=== PATIENT | female | born 1955 | race Caucasian/White ===

== ENCOUNTER 2017-03-30 23:48 | Emergency (ER) | payer BC ==
--- NOTE | 2017-03-30 23:55 | ERNOTE ---
Chest Pain/Cardiac HPI Date of Service: 03/30/17 Time Seen by Provider: 03/30/17 23:54 Source: patient, EMS Allergies/Adverse Reactions: Allergies No Known Allergies Allergy (Unverified 03/30/17 23:59) Home Medications: HOME MEDICATIONS Cholecalciferol (Vitamin D3) [Vitamin D3] 1,000 unit PO DAILY 03/31/17 [Last Taken Unknown] Glucosamine/D3/Boswellia Shellie [Osteo Bi-Flex Caplet] 2 tab PO DAILY 03/31/17 [ Last Taken Unknown] Magnesium Oxide [Magnesium] 250 mg PO DAILY 03/31/17 [Last Taken Unknown] Multivit,Stress Formula/Zinc [Stress-C with Zinc Tablet] 1 each PO DAILY [Last Taken Unknown] Chloe-3 Fatty Acids [Fish Oil] 2 cap PO DAILY 03/31/17 [Last Taken Unknown] Oxybutynin Chloride [Ditropan Xl] 5 mg PO BID 03/31/17 [Last Taken Unknown] Propranolol HCl [Inderal Xl] 80 mg PO DAILY 03/31/17 [Last Taken Unknown] Simvastatin 10 mg PO HS 03/31/17 [Last Taken Unknown] Vit C/Vit E/Lutein/Min/Chloe-3 [Ocuvite Softgel] 2 each PO DAILY 03/31/17 [Last Taken Unknown] Narrative: C/O CHEST PAIN, LOWER SUBSTERNAL, WITH DIAPHORESIS WITH RADIATION IN TO HER LEFT JAW. SHE SAYS SHE WAS AWAKE WHEN IT HAPPENED AND WAS JUST GETTING READY TO GO TO BED. SHE TOOK 4 BABY ASPIRIN AND THE PAIN SUBSIDED WITHIN 10 MINS. SHE HAS NOT PAIN ON ARRIVAL. EMS REPORTS SHE HAD ELVATED BP AT THE SCENE BUT THEY DID NOT GIVE ANY NTG. SHE DENIES HX OF HEART DIS BUT SAYS SHE HAD SMALL EPISODE OF CHEST PAIN LAST WEEK BUT DID NOT SEEK MEDICAL CARE FOR THAT. SHE SAYS HER DAD HAD AN PR AND THAT HER MOTHER HAD "HEART FAILURE". SHE DOES LIVE ALONE. Timing: resolved prior to arrival, gone now Location: substernal Chest Pain Radiation: jaw Activities at Onset: none Review of Systems - Review of Systems Constitutional: Present: See HPI EYE: Present: no symptoms reported ENT: Present: no symptoms reported Respiratory: Present: no symptoms reported Cardiology: Present: See HPI, chest pain Gastrointestinal/Abdominal: Present: no symptoms reported Genitourinary: Present: no symptoms reported Musculoskeletal: Present: no symptoms reported Skin: Present: no symptoms reported Neurological: Present: no symptoms reported Endocrine: Present: no symptoms reported Hematologic/Lymphatic: Present: no symptoms reported Psych: Present: no symptoms reported All Other Systems: All systems neg except as marked - Patient's Past Medical History Patient History - Medical: Obesity Patient History - Cardiac/Respiratory: Hypertension, Hyperlipidemia Patient History - Surgical Procedures: Other - STATES SOME LUNG SURGERY YEARS AGO. , Orthopedic - CTS L. Patient History - Other: None - Family History Father Family History - Cardiac/Respiratory: Myocardial Infarction Mother Family History - Cardiac/Respiratory: Coronary Heart Disease - Social History Living Situations: alone Abuse History: No History of abuse Psych History: No pertinent hx Does anyone smoke in the home?: No Alcohol Use: none Drug Use: none Physical Exam - Physical Exam General Appearance: Present: wd/wn, alert, no apparent distress - PT IS OBESE 62 YO LADY WHO APPEARS OLDER THAN STATED AGE BUT HAS NO PAIN , NO DISTRESS WITH VSS. Respiratory: Present: no respiratory distress, normal breath sounds, no accessory muscle use, chest nontender, lungs clear. Absent: chest tenderness Cardiovascular/Chest: Present: regular rate, rhythm, no murmur, normal peripheral pulses Peripheral Pulses: N=norm/S=strong/W=weak/B=bound/A=absent: Dorsalis-pedis (R): Normal, Dorsalis-pedis (L): Normal Gastrointestinal/Abdominal: Present: normal bowel sounds, nontender, nondistended, soft, guarding Back Exam: Present: normal inspection Extremity Exam: Present: normal inspection Neurological Exam: Present: alert, oriented Skin Exam: Present: normal color, warm/dry. Absent: diaphoresis ED Progress - Results and Orders Patient's Lab Results:: I have reviewed the patient's lab results. Results and Orders: labs are neg with initial trop at 0005 = <0.017. mireya repeat at 0400. REPEAT TROP = NEG WELL. NO CHEST PAIN SINCE SHE HAS BEEN HERE. - Vital Signs Patient's Vital Signs:: I have reviewed the patient's vital signs. - EKG EKG: NSR EKG read: Interp. by me - X-Ray X-Ray #1 X-Ray: chest Interpretation: Interp. by me - wnl. - Progress/Reassessment Progress:: Unchanged - NO PAIN SINCE SHE HAS BEEN HERE. Departure - Departure Clinical Impression: Chest pain Qualifiers: Chest pain type: unspecified Qualified Code(s): R07.9 - Chest pain, unspecified Condition: Good Instructions: Chest Pain Observation Additional Instructions: CONTACT YOUR DRToan LATER TODAY TO LET HIM KNOW YOU WERE SEEN HERE AND HAD A NEGATIVE ER CHEST PAIN EVALUATION AND DISCUSS IF HE WANTS FURTHER EVALUATION LIKE A STRESS TEST. IT WOULD NOT HURT TO TAKE A DAILY BABY ASA AND START PEPCID OR ZANTAC OTC EVERY DAY UNTIL FURTHER EVALUATION IS COMPLETED. RETURN TO THE ER IF YOU ARE WORSE. Referrals: Jeet Burntet MD [Primary Care Provider] -
[2017-03-30] MEDS ORDERED: ASPIRIN 81 MG TAB.CHEW PO STA (23:56)
[2017-03-30] MEDS ORDERED: NITROGLYCERIN 0.4 MG/TAB BTL SL PRN (23:56)
[2017-03-31 00:13] LABS: Hematocrit 39.1 % (37.0-47.0); Hemoglobin 13.2 gm/dL (12.5-16.0); Mean Corpuscular Hemoglobin 31.1 pg (27-31); Mean Corpuscular Hgb Conc 33.8 g/dl (32-36); Neutrophil # 3.8 K/mm3 (1.3-6.0); Platelet Count 230 K/mm3 (150-450); Red Blood Count 4.25 M/mm3 (4.2-5.4); Red Cell Distribution Width 13.1 % (11.5-14.0); White Blood Count 7.4 K/mm3 (4.0-10.5)
[2017-03-31 00:23] LABS: Prothrombin Time (Patient) 10.3 Seconds (9.4-11.4)
[2017-03-31 00:25] LABS: INR 0.99 INR (0.90-1.10); Partial Thrombolplastin Time 25.4 Seconds (24-32)
[2017-03-31 00:29] LABS: ALT 39 U/L (19-67); AST 31 U/L (0-48); Albumin * 3.3 gm/dl (3.4-5.0); Alkaline Phosphatase * 61 U/L (50-170); BUN/Creatinine Ratio 28.7 (9.0-21.6); Bilirubin, Total 0.6 mg/dL (0.0-1.1); Blood Urea Nitrogen 25 mg/dL (3-23); Ca. Corrected For Albumin 9.2 mg/dL (8.4-10.2); Carbon Dioxide 25.2 mmol/L (24-32.6); Chloride 106 mmol/L (97-106); Glucose * 101 mg/dL (70-110); Potassium 4.2 mmol/L (3.4-4.6); Sodium 141 mmol/L (132-142); Total Protein 6.8 gm/dL (6.2-8.2); Troponin I Less than 0.017 ng/ml (0.00-0.10)
--- OUTSIDE RECORDS SUMMARY | 2017-03-31 02:45 | XMS REPORT | Continuity of Care Document ---
:1955 Author Organization [facility] ([facility]) Address [address] [place] [address] Phone [phone] Care Team Providers Name Role Phone Unavailable Primary Care Provider Unavailable Source Comments This disclosure is being made pursuant to the Care Everywhere program, applicable federal and state laws, and may not contain all informaitonavailable regarding this patient.[facility] ([facility]) Active Allergies and Adverse Reactions Not on File Current Medications Not on file Active Problems Not on file Social History Tobacco Use Types Packs/Day Years Used Date Never Assessed Plan of Care Health Maintenance Due Date Last Done Comments HCV Screening 1955 Hepatitis B Vaccine (1 of 3 - Primary Series) 1955 Tdap Vaccine 02/18/1964 Lipid Disorder Screening 1971 Td Vaccine 1971 Cervical Cancer Screening 1983 Mammogram 1993 Colonoscopy 2003 Zoster Vaccine 2013 Influenza Vaccine: Seasonal (#1) 05/27/2016 Results from Last 3 Months Not on file
[2017-03-31 06:19] VITALS: BP 137/55
== END 2017-03-31 04:56 | disposition home or self-care (01) ==
LOC: ER 23:48
DX: R07.9 Chest pain, unspecified (principal); I10 Essential (primary) hypertension; E78.5 Hyperlipidemia, unspecified

== ENCOUNTER 2019-02-01 05:46 | Observation (INO) ==
[2019-02-01 06:26] LABS: Hematocrit 37.6 % (37.0-47.0); Hemoglobin 12.6 gm/dL (12.5-16.0); Mean Cell Volume 93.1 fl (78-100); Mean Corpuscular Hemoglobin 31.2 pg (27-31); Mean Corpuscular Hgb Conc 33.5 g/dl (32-36); Mean Platelet Volume 11.1 fl (8-12.5); Neutrophil # 7.8 K/mm3 (1.3-6.0); Neutrophil % 73.4 % (42-75.0); Platelet Count 183 K/mm3 (150-450); Red Blood Count 4.04 M/mm3 (4.2-5.4); Red Cell Distribution Width 12.5 % (11.5-14.0); White Blood Count 10.6 K/mm3 (4.0-10.5)
[2019-02-01 06:38] LABS: Glucose * 101 mg/dL (70-110)
[2019-02-01 06:39] LABS: ALT 24 U/L (19-67); AST 19 U/L (0-48); Albumin * 3.5 gm/dl (3.4-5.0); Alkaline Phosphatase * 73 U/L (50-170); Anion Gap 19.6 mmol/L (6.8-13.8); BUN/Creatinine Ratio 38.6 (9.0-21.6); Bilirubin, Total 0.3 mg/dL (0.0-1.1); Blood Urea Nitrogen 64 mg/dL (3-23); Ca. Corrected For Albumin 9.3 mg/dL (8.4-10.2); Calcium * 9.2 mg/dL (7.9-10.9); Carbon Dioxide 17.6 mmol/L (24-32.6); Chloride 106 mmol/L (97-106); Potassium 4.2 mmol/L (3.4-4.6); Sodium 139 mmol/L (132-142)
--- NOTE | 2019-02-01 07:28 | ERNOTE ---
Integumentary HPI - Narrative Date of Service: 02/01/19 - General Presenting Symptoms: other - cellulitis left leg Time Seen by Provider: 02/01/19 06:02 Source: patient, EMS Exam Limitations: no limitations - Immun/Allergies/Home Medications Immunizations: IMMUNIZATION HX Immunizations Up to Date Yes History of Influenza Vaccine No Hx Pneumococcal Vaccination Yes Allergies/Adverse Reactions: Allergies Allergy/AdvReac Type Severity Reaction Status Date / Time No Known Allergies Allergy Verified 02/01/19 06:11 Home Medications: HOME MEDICATIONS Cholecalciferol (Vitamin D3) [Vitamin D3] 1,000 unit PO DAILY 03/31/17 [Last Taken 07/27/18] Glucosamine/D3/Boswellia Shellie [Osteo Bi-Flex Caplet] 2 tab PO DAILY 03/31/17 [Last Taken 07/27/18] Magnesium Oxide [Magnesium] 250 mg PO DAILY 03/31/17 [Last Taken 07/27/18] Multivit,Stress Formula/Zinc [Stress-C with Zinc Tablet] 1 ea PO DAILY 03/31/17 [Last Taken 07/27/18] Graham-3 Fatty Acids [Fish Oil] 2 cap PO DAILY 03/31/17 [Last Taken 07/27/18] Vit C/Vit E/Lutein/Min/[place]raham-3 [Ocuvite Softgel] 2 ea PO DAILY 03/31/17 [Last Taken 07/27/18] oxybutynin chloride 5 mg tablet 5 mg PO BID #180 tab 05/08/18 [Last Taken 07/27/18] aspirin 81 mg chewable tablet 81 mg PO DAILY 06/17/18 [Last Taken 07/22/18] carica papaya tablet 1 tab PO QID PRN tab 06/17/18 [Last Taken Unknown] famotidine 20 mg tablet 20 mg PO HS 06/17/18 [Last Taken 07/27/18] zinc 50 mg tablet 50 mg PO DAILY 06/17/18 [Last Taken 07/27/18] Propranolol HCl [Inderal LA] 80 mg PO DAILY 02/01/19 [Last Taken Unknown] Simvastatin 10 mg PO DAILY 02/01/19 [Last Taken Unknown] - History of Present Illness Narrative: patient has been treated for cellullitis oupatient on antibiiotcs, symptoms have failed to improve Location: Reports: lower extremity Quality: Reports: painful, burning Severity: moderate Modifying Factors - (Improves): Reports: nothing Modifying Factors - (Worsens): Reports: nothing Associated Symptoms: Reports: edema Prior Treatment: Reports: recently seen, treated by physician Review of Systems - Review of Systems Constitutional: Present: See HPI EYE: Present: no symptoms reported ENT: Present: no symptoms reported Respiratory: Present: no symptoms reported Cardiology: Present: no symptoms reported Gastrointestinal/Abdominal: Present: no symptoms reported Genitourinary: Present: no symptoms reported Musculoskeletal: Present: no symptoms reported Skin: Present: See HPI, lesions Neurological: Present: no symptoms reported Endocrine: Present: no symptoms reported Hematologic/Lymphatic: Present: no symptoms reported Psych: Present: no symptoms reported All Other Systems: All systems neg except as marked Medical History (Last Reviewed 02/01/19 @ 06:13 by Yelena Petit RN) Arthritis Dyspnea on exertion GERD (gastroesophageal reflux disease) Onset Date: ~04/23/18 stable on Pepcid AC Gastric ulcer HTN (hypertension) Hyperlipidemia Insomnia Migraine Onset Date: ~04/23/18 stable since starting propranolol. Morbid obesity Onset Date: ~04/23/18 Needle phobia Onset Date: ~04/23/18 Postmenopausal Onset Date: ~04/23/18 Stress incontinence in female Onset Date: ~04/23/18 stable, continue oxybutynin Vitamin D deficiency Onset Date: ~04/21/13 Surgical History: Surgical History (Last Reviewed 02/01/19 @ 06:13 by Yelena Petit RN) H/O colonoscopy Onset Date: 07/28/18 [facility]. 07/28/18 [facility]-internal hemorrhoids. Recheck 10 yrs. Histoplasmosis Onset Date: ~1984 [facility] History of carpal tunnel surgery of left wrist Onset Date: ~1984 [facility] Family History: Family History (Last Reviewed 02/01/19 @ 06:13 by Yelena Petit RN) Sister Diabetes Hypertension Father Heart disease Myocardial infarction COPD (chronic obstructive pulmonary disease) Mother CHF (congestive heart failure) Alzheimers disease Lung cancer Sister Hypertension Diabetes Sister Borderline diabetic Hypertension Social History: Preferred Language Divehi Smoking Status Never smoker Abuse History No History of abuse Psych History No pertinent hx Alcohol Use none Drug Use none (Last Reviewed 12/24/18 @ 13:37 by Lucy Ferris RN) No Social History Section defined Physical Exam - Physical Exam General Appearance: Present: moderate distress, anxious Head Exam: Present: normal inspection, no evidence of injury Eye Exam: Normal inspection: bilateral, PERRL: bilateral, EOMI: bilateral Ears, Nose, Throat: Present: normal ENT inspection, normal pharynx Neck: Present: normal inspection, nontender Respiratory: Present: no respiratory distress, normal breath sounds, no accessory muscle use, chest nontender, lungs clear Cardiovascular/Chest: Present: regular rate, rhythm, no murmur, normal peripheral pulses Gastrointestinal/Abdominal: Present: normal bowel sounds, nontender, nondistended, soft, no organomegaly Back Exam: Present: normal inspection, normal range of motion, no CVA tenderness, no vertebral tenderness Extremity Exam: Present: normal except - - open draning wounds on lower left leg calf swollen and tender to palption Neurological Exam: Present: alert, oriented, normal mood/affect, no motor/sensory deficits DTR: N=norm/NB=norm/brisk/A=abs/DD=dull/dimin/HC=hyperactive: Bicep (R): Normal, Bicep (L): Normal, Tricep (R): Normal, Tricep (L): Normal, Knee (R): Normal, Knee (L): Normal, Ankle (R): Normal, Ankle (L): Normal Skin Exam: Present: normal color, warm/dry Lymphatic Exam: Present: no adenopathy Progress - Date and Time Seen: Date and Time: 02/01/19 07:35 condition unchanged - Results and Orders Patient's Lab Results:: I have reviewed the patient's lab results. - Vital Signs Patient's Vital Signs:: I have reviewed the patient's vital signs. Vital Signs: Vital Signs 02/01/19 06:06 Temperature 36.2 C Pulse Rate 64 Respiratory Rate 14 Blood Pressure 98/74 O2 Sat by Pulse Oximetry 97 - Progress/Reassessment Chief Complaint: Cellulitis - Transfer of Care Physician Sign Out: Tobias Hilliard Receiving Physician: Nataly Rodriguez Plan - Plan Plan: to be dismissed Departure Clinical Impression: Abdominal pain - Departure Disposition: Home self-care Condition: Stable Referrals: Jeet Burnett MD [Primary Care Provider] -
[2019-02-01] MEDS ORDERED: NORMAL SALINE 1,000 ML IV PRN (07:56)
[2019-02-01] MEDS ORDERED: CLINDAMYCIN PHOSPHATE 600 MG in DEXTROSE 5 % IN WATER 100 ML IV SCH ×2 (08:00)
[2019-02-01] MEDS ORDERED: SIMVASTATIN 10 MG TABLET PO SCH ×2 (09:00→21:00)
[2019-02-01] MEDS: PROPRANOLOL HCL 80 MG CAPSULE.SA PO SCH (09:07)
[2019-02-01] MEDS: CHOLECALCIFEROL 1,000 UNIT CAPSULE PO SCH (09:46)
[2019-02-01] MEDS: MAGNESIUM OXIDE 400 MG TABLET PO SCH (09:46)
[2019-02-01] MEDS: ASPIRIN 81 MG TAB.CHEW PO SCH (09:46)
[2019-02-01] MEDS: OXYBUTYNIN CHLORIDE 5 MG TABLET PO SCH ×2 (09:47→21:14)
[2019-02-01] MEDS ORDERED: LEVOFLOXACIN 750 MG TABLET PO ONE (12:18)
--- NOTE | 2019-02-01 12:18 | HP ---
Chief Complaint - Chief Complaint Date of Service: 02/01/19 Time of Service: 12:02 Chief Complaint: Left Leg Pain, swelling, redness History of Present Illness: Deja is a 63 yo female who presented to the ER today with worsening left lower extremity pain, swelling, and redness. She has had worse swelling in her legs bilaterally. She does not take diuretics. She reports ambulating less recently. She has had this infection in the left leg since the end of November. She was seen on 12/24/18 and started on Clindamycin orally for 10 days. She reports the infection did not improve and since being off of antibiotics it has worsened. Medical History (Last Reviewed 02/01/19 @ 09:03 by Theodora Bertrand RN) Arthritis Dyspnea on exertion GERD (gastroesophageal reflux disease) Onset Date: ~04/23/18 stable on Pepcid AC Gastric ulcer HTN (hypertension) Hyperlipidemia Insomnia Migraine Onset Date: ~04/23/18 stable since starting propranolol. Morbid obesity Onset Date: ~04/23/18 Needle phobia Onset Date: ~04/23/18 Postmenopausal Onset Date: ~04/23/18 Stress incontinence in female Onset Date: ~04/23/18 stable, continue oxybutynin Vitamin D deficiency Onset Date: ~04/21/13 Surgical History: Surgical History (Last Reviewed 02/01/19 @ 09:04 by Theodora Bertrand RN) H/O colonoscopy Onset Date: 07/28/182006 [facility]. 07/28/18 [facility]-internal hemorrhoids. Recheck 10 yrs. Histoplasmosis Onset Date: ~1984 [facility] History of carpal tunnel surgery of left wrist Onset Date: ~1984 [place] Family History: Family History (Last Reviewed 02/01/19 @ 09:04 by Theodora Bertrand RN) Sister Diabetes Hypertension Father Heart disease Myocardial infarction COPD (chronic obstructive pulmonary disease) Mother CHF (congestive heart failure) Alzheimers disease Lung cancer Sister Hypertension Diabetes Sister Borderline diabetic Hypertension Social History: Patient Lives/Resources Home Utilized Preferred Language Lao Smoking Status Never smoker Have you smoked in the past 12 No months Abuse History No History of abuse Psych History No pertinent hx Alcohol Use none Drug Use none (Last Reviewed 12/24/18 @ 13:37 by Lucy Ferris RN) No Social History Section defined Review Of Systems (GEN) - Review of Systems Generalized/Overall Review: Absent: Weakness, Chills, Fever EENTM: Present: No Symptoms Reported Respiratory: Present: No Symptoms Reported Cardiac: Present: No Symptoms Reported Abdominal: Present: No Symptoms Reported Genitourinary: Present: No Symptoms Reported Musculoskeletal: Present: No Symptoms Reported Neurological: Present: No Symptoms Reported Skin: Present: Change in Color - worsening redness with drainage of fluid, Other - worsening pain of left leg skin Endocrine: Present: No Symptoms Reported Immunizations: IMMUNIZATION HX Immunizations Up to Date Yes History of Influenza Vaccine No Hx Pneumococcal Vaccination Yes Allergies/Adverse Reactions: Allergies Allergy/AdvReac Type Severity Reaction Status Date / Time No Known Allergies Allergy Verified 02/01/19 09:04 Home Medications: HOME MEDICATIONS Cholecalciferol (Vitamin D3) [Vitamin D3] 1,000 unit PO DAILY 03/31/17 [Last Taken 07/27/18] Glucosamine/D3/Boswellia Shellie [Osteo Bi-Flex Caplet] 2 tab PO DAILY 03/31/17 [Last Taken 07/27/18] Magnesium Oxide [Magnesium] 250 mg PO DAILY 03/31/17 [Last Taken 07/27/18] Multivit,Stress Formula/Zinc [Stress-C with Zinc Tablet] 1 ea PO DAILY 03/31/17 [Last Taken 07/27/18] [place]-3 Fatty Acids [Fish Oil] 2 cap PO DAILY 03/31/17 [Last Taken 07/27/18] Vit C/Vit E/Lutein/Min/[place]-3 [Ocuvite Softgel] 2 ea PO DAILY 03/31/17 [Last Taken 07/27/18] oxybutynin chloride 5 mg tablet 5 mg PO BID #180 tab 05/08/18 [Last Taken 07/27/18] aspirin 81 mg chewable tablet 81 mg PO DAILY 06/17/18 [Last Taken 07/22/18] carica papaya tablet 1 tab PO QID PRN tab 06/17/18 [Last Taken Unknown] famotidine 20 mg tablet 20 mg PO HS 06/17/18 [Last Taken 07/27/18] zinc 50 mg tablet 50 mg PO DAILY 06/17/18 [Last Taken 07/27/18] Propranolol HCl [Inderal LA] 80 mg PO DAILY 02/01/19 [Last Taken Unknown] Simvastatin 10 mg PO HS 02/01/19 [Last Taken Unknown] Exam - Exam Vital Signs: Vital Signs - Last Taken Temp 36.5 C 02/01/19 09:08 Pulse 65 02/01/19 09:08 Resp 18 02/01/19 09:08 BP 136/37 02/01/19 09:08 Pulse Ox 99 02/01/19 09:08 Constitutional: Present: Alert, Oriented x3, Cooperative ENT Exam: Present: hearing grossly normal Eye Exam: bilateral eye: normal inspection Respiratory: Present: lungs clear, normal breath sounds, no respiratory distress Cardiovascular/Chest: Present: regular rate, rhythm, no murmur Abdomen: Present: Normal bowel sounds, soft, nontender, nondistended Extremity: Present: lower extremity edema - 3+ bilateral lower extremities Skin Exam: Present: other - Erythema to left lower leg, marked borders using marking pen. Majority of left calf is erythematous and weeping serous fluid with superficial ulceration Diagnostic Studies: Abnormal Lab Results 02/01/19 02/01/19 02/01/19 Range/Units 06:21 06:21 06:21 WBC 10.6 H (4.0-10.5) K/mm3 RBC 4.04 L (4.2-5.4) M/mm3 MCH 31.2 H (27-31) pg Immature Gran # (Auto) 0.04 H (0.000-0.0310) K/mm3 Lymphocytes % 14.7 L (20-51) % Eosinophils % 3.5 H (0.0-3.0) % Neutrophils # 7.8 H (1.3-6.0) K/mm3 Carbon Dioxide 17.6 L (24-32.6) mmol/L Anion Gap 19.6 H (6.8-13.8) mmol/L BUN 64 H (3-23) mg/dL Creatinine 1.66 H (0.4-1.4) mg/dL Est GFR (Non-Af Amer) 33 L D (60-130) mL/min BUN/Creatinine Ratio 38.6 H (9.0-21.6) Procalcitonin Less than 0.05 L (0.05-0.50) ng/mL Laboratory Results WBC 10.6 K/mm3 (4.0-10.5) H 02/01/19 06:21 RBC 4.04 M/mm3 (4.2-5.4) L 02/01/19 06:21 Hgb 12.6 gm/dL (12.5-16.0) 02/01/19 06:21 Hct 37.6 % (37.0-47.0) 02/01/19 06:21 MCV 93.1 fl (78-100) 02/01/19 06:21 MCH 31.2 pg (27-31) H 02/01/19 06:21 MCHC 33.5 g/dl (32-36) 02/01/19 06:21 RDW 12.5 % (11.5-14.0) 02/01/19 06:21 Plt Count 183 K/mm3 (150-450) 02/01/19 06:21 MPV 11.1 fl (8-12.5) 02/01/19 06:21 Immature Gran % (Auto) 0.40 % (0.001-0.429) 02/01/19 06:21 Immature Gran # (Auto) 0.04 K/mm3 (0.000-0.0310) H 02/01/19 06:21 Neutrophils % 73.4 % (42-75.0) 02/01/19 06:21 Lymphocytes % 14.7 % (20-51) L 02/01/19 06:21 Monocytes % 7.5 % (0.0-9) 02/01/19 06:21 Eosinophils % 3.5 % (0.0-3.0) H 02/01/19 06:21 Basophils % 0.5 % (0.0-1.0) 02/01/19 06:21 Nucleated RBC % 0.0 k/mm3 (0-1) 02/01/19 06:21 Neutrophils # 7.8 K/mm3 (1.3-6.0) H 02/01/19 06:21 Lymphocytes # 1.56 k/mm3 (1.5-3.5) 02/01/19 06:21 Monocytes # 0.8 k/mm3 (0.0-1.0) 02/01/19 06:21 Eosinophils # 0.4 k/mm3 (0.0-0.7) 02/01/19 06:21 Absolute Basophils 0.1 k/mm3 (0.0-0.1) 02/01/19 06:21 Sodium 139 mmol/L (132-142) 04/08/19 06:21 Plasma Sodium 139 mmol/L (130-142) 02/01/19 06:21 Potassium 4.2 mmol/L (3.4-4.6) 02/01/19 06:21 Chloride 106 mmol/L (97-106) 02/01/19 06:21 Carbon Dioxide 17.6 mmol/L (24-32.6) L 02/01/19 06:21 Anion Gap 19.6 mmol/L (6.8-13.8) H 02/01/19 06:21 BUN 64 mg/dL (3-23) H 02/01/19 06:21 Creatinine 1.66 mg/dL (0.4-1.4) H 02/01/19 06:21 Est GFR (Non-Af Amer) 33 mL/min (60-130) L D 02/01/19 06:21 BUN/Creatinine Ratio 38.6 (9.0-21.6) H 02/01/19 06:21 Random Glucose 101 mg/dL (70-110) 02/01/19 06:21 Lactic Acid, Venous 0.9 mmol/L (0.4-2.0) 02/01/19 06:21 Calcium 9.2 mg/dL (7.9-10.9) 02/01/19 06:21 Calcium Adj for Albumin 9.3 mg/dL (8.4-10.2) 02/01/19 06:21 Total Bilirubin 0.3 mg/dL (0.0-1.1) 02/01/19 06:21 AST 19 U/L (0-48) 02/01/19 06:21 ALT 24 U/L (19-67) 02/01/19 06:21 Alkaline Phosphatase 73 U/L (50-170) 02/01/19 06:21 C-Reactive Prot, Quant Less than 0.2 mg/dL (0.0-0.9) 02/01/19 06:21 Total Protein 7.0 gm/dL (6.2-8.2) 02/01/19 06:21 Albumin 3.5 gm/dl (3.4-5.0) 02/01/19 06:21 Procalcitonin Less than 0.05 ng/mL (0.05-0.50) L 02/01/19 06:21 Assessment/Plan - Narrative Narrative: Deja is a 63 yo female with left lower leg cellulitis secondary to stasis dermatitis. The ER started her on clindamycin IV, however this is what she was treated with for outpatient earlier last month. I will discontinue clindamycin and start levaquin PO 750mg. She will get IV lasix for edema that is contributing or perhaps the primary cause to the cellulitis. Will admit to observation. If showing signs of improvement with levaquin and removal of excess fluids she may be discharged to home tomorrow. - Assessment/Plan (1) Cellulitis of left lower extremity without foot Problem: Acute (2) Stasis dermatitis Problem: Acute (3) Lower extremity edema Problem: Acute
[2019-02-01] MEDS ORDERED: FUROSEMIDE 10 MG/ML VIAL IV ONE (13:15)
[2019-02-01 14:42] LABS: Urine Bilirubin Negative (NEGATIVE); Urine Blood 250 /ul (NEGATIVE); Urine Ketone Negative (NEGATIVE); Urine Nitrite Negative (NEGATIVE); Urine Protein Negative (NEGATIVE); Urine Urobilinogen Normal (NORMAL)
[2019-02-01 14:51] LABS: Urine Appearance Slightly Cloudy (CLEAR); Urine Bacteria 2+; Urine Color Pale Yellow
[2019-02-01] MEDS: IBUPROFEN 600 MG TABLET PO PRN (19:45)
[2019-02-01] MEDS ORDERED: FAMOTIDINE 20 MG TABLET PO SCH (21:00)
[2019-02-01] MEDS: KETOROLAC TROMETHAMINE 30 MG/ML VIAL IV SCH (22:36)
[2019-02-02] MEDS: IBUPROFEN 600 MG TABLET PO PRN (02:24)
[2019-02-02] MEDS: KETOROLAC TROMETHAMINE 30 MG/ML VIAL IV SCH ×2 (05:04→10:25)
[2019-02-02 05:38] LABS: Hematocrit 37.5 % (37.0-47.0); Hemoglobin 12.4 gm/dL (12.5-16.0); Mean Cell Volume 93.1 fl (78-100); Mean Corpuscular Hemoglobin 30.8 pg (27-31); Mean Corpuscular Hgb Conc 33.1 g/dl (32-36); Neutrophil % 68.7 % (42-75.0); Platelet Count 180 K/mm3 (150-450); Red Blood Count 4.03 M/mm3 (4.2-5.4); Red Cell Distribution Width 12.6 % (11.5-14.0); White Blood Count 8.7 K/mm3 (4.0-10.5)
[2019-02-02 06:22] LABS: Albumin * 3.2 gm/dl (3.4-5.0); BUN/Creatinine Ratio 35.8 (9.0-21.6); Bilirubin, Total 0.4 mg/dL (0.0-1.1); Ca. Corrected For Albumin 9.6 mg/dL (8.4-10.2); Calcium * 9.3 mg/dL (7.9-10.9); Carbon Dioxide 19.1 mmol/L (24-32.6); Potassium 4.1 mmol/L (3.4-4.6); Total Protein 6.8 gm/dL (6.2-8.2)
[2019-02-02] MEDS: CHOLECALCIFEROL 1,000 UNIT CAPSULE PO SCH (08:33)
[2019-02-02] MEDS: ASPIRIN 81 MG TAB.CHEW PO SCH (08:33)
[2019-02-02] MEDS: PROPRANOLOL HCL 80 MG CAPSULE.SA PO SCH (08:33)
[2019-02-02] MEDS: MAGNESIUM OXIDE 400 MG TABLET PO SCH (08:33)
[2019-02-02] MEDS: OXYBUTYNIN CHLORIDE 5 MG TABLET PO SCH (08:33)
[2019-02-02] MEDS ORDERED: FUROSEMIDE 10 MG/ML VIAL IV ONE (08:38)
[2019-02-02] MEDS ORDERED: LEVOFLOXACIN 750 MG TABLET PO SCH (11:00)
--- NOTE | 2019-02-02 13:08 | CONS ---
[facility] - General Date of Service: 02/02/19 Narrative: Patient is a 63 year old female, recently admitted to the hospital due to failure of outpatient treatment related to cellulitis of the left lower leg. She states that she noted drainage to the posterior lower leg in mid November 2018. She presented to the [facility] for evaluation, and started antibiotics. She states there was no improvement with the medication. She does admit to long- standing edema to the lower extremities, she does not wear compression. The patient states that she is very sedentary. She describes moderate pain with the ulcers. She denies similar symptoms in the past. Her medical history includes arthritis, GERD, hypertension, hyperlipidemia and morbid obesity. Source: patient Exam Limitations: no limitations - History of Present Illness Timing/Duration: getting worse Allergies/Adverse Reactions: Allergies No Known Allergies Allergy (Verified 02/01/19 09:04) Home Medications: Home Medications Medication Instructions Recorded Last Taken Cholecalciferol (Vitamin D3) 1,000 unit PO DAILY 03/31/17 07/27/18 [Vitamin D3] Glucosamine/D3/Boswellia Shellie 2 tab PO DAILY 03/31/17 07/27/18 [Osteo Bi-Flex Caplet] Magnesium Oxide [Magnesium] 250 mg PO DAILY 03/31/17 07/27/18 Multivit,Stress Formula/Zinc 1 ea PO DAILY 03/31/17 07/27/18 [Stress-C with Zinc Tablet] [place]-3 Fatty Acids [Fish Oil] 2 cap PO DAILY 03/31/17 07/27/18 Vit C/Vit E/Lutein/Min/[place]-3 2 ea PO DAILY 03/31/17 07/27/18 [Ocuvite Softgel] oxybutynin chloride 5 mg tablet 5 mg PO BID #180 tab 05/08/18 07/27/18 aspirin 81 mg chewable tablet 81 mg PO DAILY 06/17/18 07/22/18 carica papaya tablet 1 tab PO QID PRN tab 06/17/18 Unknown famotidine 20 mg tablet 20 mg PO HS 06/17/18 07/27/18 zinc 50 mg tablet 50 mg PO DAILY 06/17/18 07/27/18 Propranolol HCl [Inderal LA] 80 mg PO DAILY 02/01/19 Unknown Simvastatin 10 mg PO HS 02/01/19 Unknown Procedures Endoscopic polypectomy of large intestine (07/30/06) Medications - Medications Current Medications: Current Medications Aspirin (Aspirin Chewable) 81 mg PO DAILY [facility] Stop: 03/03/19 09:01 Last Admin: 02/02/19 08:33 Dose: 81 mg Documented by: Cholecalciferol (Vitamin D) 1,000 unit PO DAILY [facility] Stop: 03/03/19 09:01 Last Admin: 02/02/19 08:33 Dose: 1,000 unit Documented by: Famotidine (Pepcid) 20 mg PO [facility] Stop: 03/03/19 21:01 Last Admin: 02/01/19 21:15 Dose: 20 mg Documented by: Ibuprofen (Motrin) 600 mg PO Q6H PRN PRN Reason: pain Stop: 03/03/19 19:31 Last Admin: 02/02/19 02:24 Dose: 600 mg Documented by: Ketorolac Tromethamine (Toradol) 30 mg IV Q6H [facility] Stop: 02/06/19 23:01 Last Admin: 02/02/19 10:25 Dose: 30 mg Documented by: Levofloxacin (Levaquin) 750 mg PO DAILY@1100 MARCELA; Protocol Stop: 03/04/19 11:01 Last Admin: 02/02/19 10:25 Dose: 750 mg Documented by: Magnesium Oxide (Mag-Ox 400) 200 mg PO DAILY [facility] Stop: 03/03/19 09:01 Last Admin: 02/02/19 08:33 Dose: 200 mg Documented by: Oxybutynin Chloride (Ditropan) 5 mg PO BID [facility] Stop: 03/03/19 09:01 Last Admin: 02/02/19 08:33 Dose: 5 mg Documented by: Propranolol HCl (Inderal La) 80 mg PO DAILY [facility] Stop: 03/03/19 09:01 Last Admin: 02/02/19 08:33 Dose: 80 mg Documented by: Simvastatin (Zocor) 10 mg PO [facility] Stop: 03/03/19 21:01 Last Admin: 02/01/19 21:15 Dose: 10 mg Documented by: Review of Systems - Review of Systems Generalized/Overall Review: Absent: Chills, Fever EENTM: Absent: Nose Congestion Respiratory: Absent: Cough Cardiac: Present: Edema. Absent: Chest Pain Abdominal: Absent: Nausea Musculoskeletal: Present: Joint Pain Neurological: Absent: Numbness Skin: Present: Lesions Physical Examination - Exam Vital Signs: Vital Signs - Last Taken Temp 37.0 C 02/02/19 09:17 Pulse 81 02/02/19 09:17 Resp 18 02/02/19 09:17 BP 122/53 02/02/19 09:17 Pulse Ox 91 L 02/02/19 09:17 O2 Oxygen Delivery Method Room Air Constitutional: Present: Alert, Oriented x3, No distress, Morbidly obese ENT Exam: Present: hearing grossly normal Extremity: Present: lower extremity edema - 2+ pitting edema Skin Exam: Present: warm/dry, other - there are several intact fluid filled blisters on the left lower leg. the posterior leg measuring 8.5 x 8.0 x 0.1. moderate amount of serous drainage. erythema surrounding is within the marked area. - Results and Findings: Lab/Microbiology results last 24 hrs: Abnormal/Pending Laboratory Last 24 HRS 02/02/19 02/02/19 02/01/19 05:29 05:29 14:02 RBC 4.03 L Hgb 12.4 L Lymphocytes % 17.0 L Monocytes % 10.1 H Eosinophils % 3.3 H Lymphocytes # 1.49 L Chloride 107 H Carbon Dioxide 19.1 L Anion Gap 17.0 H BUN 57 H Creatinine 1.59 H Est GFR (Non-Af Amer) 35 L BUN/Creatinine Ratio 35.8 H Random Glucose 113 H Albumin 3.2 L Urine Blood 250 H Ur Leukocyte Esterase 100 H Urine RBC 10-25 H Urine WBC 5-10 H Ur Epithelial Cells 5-10 H Urine Bacteria 2+ H Culture 02/01/19 06:22 Wound Culture - Preliminary Ankle - Left Staphylococcus Species Gram Negative Bacilli 02/01/19 06:22 Wound Culture - Preliminary Calf - Left Staphylococcus Species Gram Negative Bacilli - Assessments/Findings (1) Stasis dermatitis Problem: Acute (2) Lower extremity edema Diagnosis(s): Recommend using Aquacel Ag, covered with gauze, on the open areas of the left lower leg. This will be changed every other day. The area will be washed thoroughly with soap and water at dressing changes. The patient will wear two layers of tubigrip for compression. We would be happy to continue her care in the [facility] at discharge. Problem: Acute
--- NOTE | 2019-02-02 16:01 | DS ---
(1) Cellulitis of left lower extremity without foot Problem: Acute (2) Stasis dermatitis Problem: Acute (3) Lower extremity edema Problem: Acute (4) Superficial wound Problem: Acute Description of Stay: Deja is a 63 yo female admitted with left leg cellulitis, lower extremity edema, and wound of leg secondary to edema. She had recently been treated for this same infection with clindamycin. She was given a dose of clindamycin IV in the ER, but this was discontinued as she potentially had resistance to this as it had not worked previously. She was started on Levaquin and WBC improved from 11k to normal. She was consulted with wound care who recommended dressing changes with aquacel. She will get referral to home health. She had a face to face evaluation today for her need for home health. She has cellulitis and left leg wound due to edema. She needs nursing for dressing changes and monitoring of wound. She will get treatments as recommended from wound care team. She is homebound as it is physically taxing to leave the home due to her wound and leg pain. Procedures Performed: none Results and Findings: Pending Mircobiology Results 02/01/19 06:22 Ankle - Left Wound Culture - Preliminary Staphylococcus Species Gram Negative Bacilli 02/01/19 06:22 Calf - Left Wound Culture - Preliminary Staphylococcus Species Gram Negative Bacilli Lab Pending Results 02/01/19 06:21: WBC 10.6 H, RBC 4.04 L, Hgb 12.6, Hct 37.6, MCV 93.1, MCH 31.2 H, MCHC 33.5, RDW 12.5, Plt Count 183, MPV 11.1, Immature Gran % (Auto) 0.40, Immature Gran # (Auto) 0.04 H, Neutrophils % 73.4, Lymphocytes % 14.7 L, Monocytes % 7.5, Eosinophils % 3.5 H, Basophils % 0.5, Nucleated RBC % 0.0, Neutrophils # 7.8 H, Lymphocytes # 1.56, Monocytes # 0.8, Eosinophils # 0.4, Abs olute Basophils 0.1 02/01/19 06:21: Sodium 139, Plasma Sodium 139, Potassium 4.2, Chloride 106, Carbon Dioxide 17.6 L, Anion Gap 19.6 H, BUN 64 H, Creatinine 1.66 H, Est GFR ( Non-Af Amer) 33 L D, BUN/Creatinine Ratio 38.6 H, Random Glucose 101, Calcium 9.2, Calcium Adj for Albumin 9.3, Total Bilirubin 0.3, AST 19, ALT 24, Alkaline Phosphatase 73, C-Reactive Prot, Quant Less than 0.2, Total Protein 7.0, Albumin 3.5 02/01/19 06:21: Lactic Acid, Venous 0.9 02/01/19 06:21: Procalcitonin Less than 0.05 L 02/01/19 14:02: Urine Color Pale yellow, Urine Appearance Slightly cloudy, Urine pH 6.0, Ur Specific [place] 1.010, Urine Protein Negative, Urine Glucose (UA) Negative, Urine Ketones Negative, Urine Blood 250 H, Urine Nitrate Negative, Urine Bilirubin Negative, Urine Urobilinogen Normal, Ur Leukocyte Esterase 100 H, Urine RBC 10-25 H, Urine WBC 5-10 H, Ur Epithelial Cells 5-10 H, Urine Bacter ia 2+ H, Urine Culture Comments No Print 02/02/19 05:29: WBC 8.7, RBC 4.03 L, Hgb 12.4 L, Hct 37.5, MCV 93.1, MCH 30.8, MCHC 33.1, RDW 12.6, Plt Count 180, MPV 11.0, Immature Gran % (Auto) 0.30, Immature Gran # (Auto) 0.03, Neutrophils % 68.7, Lymphocytes % 17.0 L, Monocytes % 10.1 H, Eosinophils % 3.3 H, Basophils % 0.6, Nucleated RBC % 0.0, Neutrophils # 6.0, Lymphocytes # 1.49 L, Monocytes # 0.9, Eosinophils # 0.3, Absolute Basophils 0.1 02/02/19 05:29: Sodium 139, Plasma Sodium 139, Potassium 4.1, Chloride 107 H, Carbon Dioxide 19.1 L, Anion Gap 17.0 H, BUN 57 H, Creatinine 1.59 H, Est GFR (Non-Af Amer) 35 L, BUN/Creatinine Ratio 35.8 H, Random Glucose 113 H, Calcium 9.3, Calcium Adj for Albumin 9.6, Total Bilirubin 0.4, AST 19, ALT 24, Alkaline Phosphatase 66, Total Protein 6.8, Albumin 3.2 L Discharge Location: Home Disposition: Home self-shelter Health Agency: [facility] Health Condition: Fair Face to Face Encounter completed per CMS Guidelines: Yes Discharge Activity: Activity as tolerated Discharge Diet: Low salt Referrals: Jeet Burnett MD [Primary Care Provider] - One Week Problem Oriented Discharge Instructions to Patient/Family: Cellulitis, Adult, [id number] Additional Patient Instructions (free text): [facility]. Nursing and bath aide. Please call report and fax orders upon discharge. Dressing change: Apply Aquacel Ag to the open areas on the left lower leg, cover with gauze and secure with tape. change qod, and prn drainage. wash with soap and water at dressing changes. patient needs two layers of tubigrip to the lower extremity. elevate legs when possible. -Please make TCM appointment unless long term discharge. Thank you! Malaika @ [phone]. Prescriptions (Any new or edited meds): HYDROcodone/ACETAMINOPHEN [Hydrocodon-Acetaminophen 5-325] 1 each PO Q6H #60 tablet Levofloxacin [Levaquin] 750 mg PO DAILY@1100 #10 tab Complete Home Medications List: Complete Home Medication List: Cholecalciferol (Vitamin D3) [Vitamin D3] 1,000 unit PO DAILY 03/31/17 Glucosamine/D3/Boswellia Shellie [Osteo Bi-Flex Caplet] 2 tab PO DAILY 03/31/17 Magnesium Oxide [Magnesium] 250 mg PO DAILY 03/31/17 Multivit,Stress Formula/Zinc [Stress-C with Zinc Tablet] 1 ea PO DAILY 03/31/17 [place]-3 Fatty Acids [Fish Oil] 2 cap PO DAILY 03/31/17 Vit C/Vit E/Lutein/Min/[place]-3 [Ocuvite Softgel] 2 ea PO DAILY 03/31/17 oxybutynin chloride 5 mg tablet 5 mg PO BID #180 tab 05/08/18 aspirin 81 mg chewable tablet 81 mg PO DAILY 06/17/18 carica papaya tablet 1 tab PO QID PRN tab 06/17/18 famotidine 20 mg tablet 20 mg PO HS 06/17/18 zinc 50 mg tablet 50 mg PO DAILY 06/17/18 Propranolol HCl [Inderal LA] 80 mg PO DAILY 02/01/19 Simvastatin 10 mg PO HS 02/01/19 HYDROcodone/ACETAMINOPHEN [Hydrocodon-Acetaminophen 5-325] 1 each PO Q6H #60 tablet 02/02/19 Levofloxacin [Levaquin] 750 mg PO DAILY@1100 #10 tab 02/02/19
[2019-02-02 16:31] VITALS: BP 131/52
== END 2019-02-02 17:35 | disposition home health service (06) ==
LOC: MS 05:46 → ER 05:46 → MS 08:45
PROVIDERS: ADMIT Family Medicine; ATTEND Allergy & Immunology
CPT/HCPCS: 36415; 80053; 81001; 83605; 84145; 85025; 86140; 87070; 87077; 87186; 93971; 96365; 96375; 99285; G0378